=== PATIENT | male | born 1980 | race Caucasian/White ===

== ENCOUNTER 2017-12-17 07:37 | Day surgery (SDC) | payer BC ==
[~2017-12-17 07:37] MED LIST: Lactated Ringers 1,000 ML IV SCH; Sodium Chloride 0.9% 10 ML Syringe FLUSH PRN; Sodium Chloride 0.9% 2.5 ML Syringe FLUSH PRN; ceFAZolin 2 GM in Premix Bag 1 BAG IV ONE
[2017-12-17] MEDS ORDERED: Bupivacaine 0.5% 10 ML SDV ONE (07:44)
--- NOTE | 2017-12-17 08:43 | PCM.PREANE ---
Preanesthetic Assessment - Procedure Proposed Procedure: Hydrocoele repair, right - Anesthesia/Transfusion/Family Hx Anesthesia History: Prior Anesthesia Without Reaction Family History of Anesthesia Reaction: No Transfusion History: No Prior Transfusion(s) Intubation History: Unknown - Review of Systems General: Other (intermittent pain in right groin) Pulmonary: Other (smoker) Cardiovascular: No Symptoms Gastrointestinal: No Symptoms Neurological: No Symptoms Other: Reports: None - Physical Assessment NPO Status Date: 12/16/17 NPO Status Time: 22:00 Height: 6 ft 1 in Weight: 196 lb ASA Class: 2 Mental Status: Alert & Oriented x3 Airway Class: Mallampati = 2 Dentition: Reports: Broken Tooth/Teeth (broken #8) Thyro-Mental Finger Breadths: 3 Mouth Opening Finger Breadths: 3 (bearded) ROM/Head Extension: Full Lungs: Clear to Auscultation, Normal Respiratory Effort Cardiovascular: Regular Rate, Regular Rhythm, No Murmurs - Allergies Allergies/Adverse Reactions: Allergies Allergy/AdvReac Type Severity Reaction Status Date / Time No Known Allergies Allergy Verified 12/15/17 16:01 - Blood Blood Available: No Product(s) Available: None - Anesthesia Plan Pre-Op Medication Ordered: None - Acknowledgements Anesthesia Type Planned: General Anesthesia (LMA vs OET) Pt an Appropriate Candidate for the Planned Anesthesia: Yes Alternatives and Risks of Anesthesia Discussed w Pt/Guardian: Yes Pt/Guardian Understands and Agrees with Anesthesia Plan: Yes PreAnesthesia Questionnaire Gastrointestinal History: Reports: None - Past Surgical History Head Surgeries/Procedures: Reports: None GI Surgical History: Reports: Hernia, Inguinal Other GI Surgeries/Procedures: hx inguinal hernia repair - SUBSTANCE USE Smoking Status *Q: Light Tobacco Smoker Tobacco Use Within Last Twelve Months: Cigarettes Recreational Drug Use History: No - HOME MEDS Home Medications: Home Meds . [No Known Home Meds] 12/15/17 [History] - CURRENT (IN HOUSE) MEDS Current Meds: Current Medications Lactated Ringer's (Ringers, Lactated) 1,000 mls @ 100 mls/hr IV ASDIRECTED EVERETTE Sodium Chloride (Saline Flush) 10 ml FLUSH ASDIRECTED PRN PRN Reason: Keep Vein Open Sodium Chloride (Saline Flush) 2.5 ml FLUSH ASDIRECTED PRN PRN Reason: Keep Vein Open Discontinued Medications Bupivacaine HCl (Sensorcaine-Mpf 0.5%) Confirm Administered Dose 10 ml .ROUTE .STK-MED ONE Stop: 12/17/17 07:45 Cefazolin Sodium/Dextrose 2 gm (/ Premix) 50 mls @ 100 mls/hr IV ONETIME ONE Stop: 12/17/17 00:30
[2017-12-17] MEDS ORDERED: Midazolam 1 MG/ML 2 ML SDV ONE (09:24)
[2017-12-17] MEDS ORDERED: fentaNYL 100 MCG/2 ML SDV ONE ×2 (09:24→12:29)
[2017-12-17] MEDS ORDERED: Propofol 200 MG/20 ML SDV ONE (09:24)
[2017-12-17] MEDS ORDERED: Ondansetron 4 MG/2 ML SDV ONE (09:26)
[2017-12-17] MEDS ORDERED: Dexamethasone 4 MG/ML 5 ML MDV ONE (09:26)
[2017-12-17] MEDS ORDERED: Bupivacaine 0.25% 10 ML SDV ONE (10:57)
[2017-12-17] MEDS ORDERED: ceFAZolin 1 GM Vial ONE (11:00)
[2017-12-17] MEDS ORDERED: Ketorolac 30 MG/ML SDV ONE (12:01)
[2017-12-17] MEDS: fentaNYL 100 MCG/2 ML SDV IVPUSH PRN ×2 (12:30→12:37)
[2017-12-17] MEDS ORDERED: Acetaminophen/HYDROcodone 325-5 MG Tab PO ONE (13:08)
--- NOTE | 2017-12-17 13:30 | PCM48HPAN ---
Post Anesthesia Note - EVALUATION WITHIN 48HRS OF ANESTHETIC Vital Signs in Normal Range: Yes Patient Participated in Evaluation: Yes Respiratory Function Stable: Yes Airway Patent: Yes Cardiovascular Function Stable: Yes Hydration Status Stable: Yes Pain Control Satisfactory: Yes Nausea and Vomiting Control Satisfactory: Yes Mental Status Recovered: Yes Resp Rate: 15 - COMMENTS/OBSERVATIONS Free Text/Narrative:: no anesthesia problems
--- NOTE | 2017-12-17 17:40 | OR ---
SURGEON: Guille Irene M.D. DATE OF PROCEDURE: 12/17/2017 PREOPERATIVE DIAGNOSIS: Right hydrocele. POSTOPERATIVE DIAGNOSIS: Right hydrocele. OPERATION: Hydrocele repair. PROCEDURE IN DETAIL: The patient was given general anesthesia and placed in the supine position. External genital area was prepped and draped in sterile drapes. A transverse incision was made in scrotal sac. The fluid was removed. The hydrocele sac was partially excised. The rest was wrapped around the spermatic cord structures and sutured with a running 3-0 chromic suture. The testicle was put back in place. The appendix testis was destroyed with cautery. 0.25 inch Jaleesa drain was left and brought to the outside through separate stab wound incision below the main incision. Incision was then closed using 3-0 chromic in two layers in a running suture for the muscle and interrupted suture for the skin. The patient tolerated the procedure well. Estimated blood loss under 5 mL. He was moved to recovery room in good condition. MARYAN / ASHELY /[id number]
== END 2017-12-17 13:35 | disposition home or self-care (01) ==
LOC: MW.SDS 07:37
PROVIDERS: ATTEND Urology
DX: N43.3 Hydrocele, unspecified (principal); N50.89 Other specified disorders of the male genital organs; F17.210 Nicotine dependence, cigarettes, uncomplicated
CPT/HCPCS: 55500; A9270; J0131; J0690; J1100; J1885; J2250; J2405; J2704; J3010; J3490; J7120